=== PATIENT | female | born 1940 | race Caucasian/White ===

== ENCOUNTER 2020-04-03 17:05 | Inpatient (IN) ==
[2020-04-03] MEDS ORDERED: Isovue-370 500 ML BOTTLE IVP ONE (17:19)
[2020-04-03] MEDS ORDERED: Morphine Sulfate 2 MG/ML SYRINGE IVP ONE (17:42)
[2020-04-03] MEDS ORDERED: 0.9 % Sodium Chloride 1,000 ML IVC ONE (17:42)
[2020-04-03] MEDS ORDERED: Ondansetron 4 MG/2 ML VIAL IVP ONE (17:43)
[2020-04-03 17:46] LABS: Bilirubin,Urine Negative (Negative); Blood,Urine Negative (Negative); Clarity,Urine Clear (Clear); Color,Urine Light-Yellow (Yellow); Glucose,Urine (UA) Normal (Normal); Ketones,Urine Negative (Negative); Leukocyte Esterase,Urine Negative (Negative); Nitrite,Urine Negative (Negative); Protein,Urine Negative (Neg-Trace); Specific Gravity,Urine 1.015 (1.010-1.025); Urobilinogen,Urine Normal (Normal)
[2020-04-03 18:16] LABS: Basophils % 0.5 %; Hemoglobin 10.4 g/dL (11.5-15.4); Immature Granulocytes % 0.6 % (0-4); Lymphocytes % 7.3 %; Segmented Neutrophils % 87.8 %
[2020-04-03 18:18] LABS: Basophils # 0.1 K/mcL (0.0-0.2); Eosinophils % 0.4 %; Hematocrit 32.9 % (35.3-44.9); Immature Platelets 2.8 % (1.1-6.1); Lymphocytes # 0.7 K/mcL (0.6-4.6); Mean Corpuscular HGB Conc 31.6 g/dL (31.6-35.5); Mean Corpuscular Hemoglobin 28.9 pg (28.0-33.3); Mean Corpuscular Volume 91.4 fL (83.0-100.0); Mean Platelet Volume 10.9 fL (9.4-12.4); Monocytes # 0.3 K/mcL (0.0-1.3); Monocytes % 3.4 %; Platelet Count 143 K/mcL (140-400); Red Cell Distribution Width 15.9 % (11.5-14.5); White Blood Count 9.4 K/mcL (4.3-11.1)
[2020-04-03 18:37] LABS: Alanine Aminotransferase 23 Units/L (7-52); Albumin 3.7 g/dL (3.5-5.7); Albumin/Globulin Ratio 1.3 (1.1-2.2); Alkaline Phosphatase 211 Units/L (34-104); Aspartate Amino Transferase 43 Units/L (13-39); BUN/Creatinine Ratio 16 (6-26); Bilirubin,Direct 0.2 mg/dL (0.0-0.2); Bilirubin,Indirect 0.5 mg/dL (0.0-1.0); Bilirubin,Total 0.7 mg/dL (0.3-1.0); Blood Urea Nitrogen 15 mg/dL (8-23); Calcium 9.4 mg/dL (8.6-10.3); Carbon Dioxide 24 mEq/L (23-29); Chloride 103 mEq/L (98-107); Globulin 2.8 g/dL (2.4-3.5); Glucose 104 mg/dL (70-105); Lipase 27 Units/L (11-82); Osmolality,Calculated 283 (280-300); Potassium 4.6 mEq/L (3.5-5.1); Sodium 136 mEq/L (136-145); Total Protein 6.5 g/dL (6.4-8.9); eGFR For African Americans > 60 (> 60); eGFR For Non-African Americans 58 (> 60)
[2020-04-03 18:55] LABS: Neutrophils # 8.3 K/mcL (1.6-8.9)
[2020-04-03 21:10] LABS: Influenza A PCR Negative (Negative); Influenza B PCR Negative (Negative); Resp. Syncytial Virus PCR Negative (Negative); SARS-CoV-2 by PCR (In House) Negative (Negative)
[2020-04-03] MEDS ORDERED: Naloxone 0.4 MG/ML INJ IVP PRN (22:28)
[2020-04-03] MEDS: Ondansetron 4 MG/2 ML VIAL IVP PRN (23:42)
[2020-04-03] MEDS: Morphine Sulfate 2 MG/ML SYRINGE IVP PRN (23:43)
[2020-04-04 00:29] LABS: INR 1.2; Prothrombin Time 13.5 Seconds (9.4-12.1)
[2020-04-04 01:42] LABS: Basophils % 0.6 %; Hemoglobin 9.1 g/dL (11.5-15.4); Immature Granulocytes % 0.4 % (0-4)
[2020-04-04 01:44] LABS: Eosinophils # 0.1 K/mcL (0.0-0.6); Eosinophils % 0.7 %; Hematocrit 28.3 % (35.3-44.9); INR 1.2; Immature Platelets 2.8 % (1.1-6.1); Lymphocytes # 0.8 K/mcL (0.6-4.6); Lymphocytes % 11.7 %; Mean Corpuscular HGB Conc 32.2 g/dL (31.6-35.5); Mean Corpuscular Hemoglobin 29.3 pg (28.0-33.3); Mean Platelet Volume 10.9 fL (9.4-12.4); Monocytes # 0.2 K/mcL (0.0-1.3); Monocytes % 3.3 %; Neutrophils # 5.8 K/mcL (1.6-8.9); Platelet Count 146 K/mcL (140-400); Prothrombin Time 13.7 Seconds (9.4-12.1); Red Blood Count 3.11 M/mcL (3.82-4.97); Red Cell Distribution Width 15.8 % (11.5-14.5); Segmented Neutrophils % 83.3 %; White Blood Count 6.9 K/mcL (4.3-11.1)
[2020-04-04 02:02] LABS: Alanine Aminotransferase 20 Units/L (7-52); Albumin 3.1 g/dL (3.5-5.7); Albumin/Globulin Ratio 1.1 (1.1-2.2); Alkaline Phosphatase 166 Units/L (34-104); Aspartate Amino Transferase 29 Units/L (13-39); BUN/Creatinine Ratio 15 (6-26); Bilirubin,Total 0.7 mg/dL (0.3-1.0); Blood Urea Nitrogen 14 mg/dL (8-23); Calcium 8.9 mg/dL (8.6-10.3); Carbon Dioxide 26 mEq/L (23-29); Chloride 103 mEq/L (98-107); Globulin 2.9 g/dL (2.4-3.5); Glucose 89 mg/dL (70-105); Magnesium 2.1 mg/dL (1.6-2.6); Osmolality,Calculated 282 (280-300); Phosphorous 3.6 mg/dL (2.7-4.5); Potassium 4.2 mEq/L (3.5-5.1); Sodium 136 mEq/L (136-145); eGFR For African Americans > 60 (> 60); eGFR For Non-African Americans 56 (> 60)
[2020-04-04] MEDS ORDERED: 0.9 % Sodium Chloride 1,000 ML IVC ONE (03:30)
[2020-04-04] MEDS: Pantoprazole 40 MG VIAL IVP SCH ×2 (05:05→17:35)
[2020-04-04] MEDS: Morphine Sulfate 2 MG/ML SYRINGE IVP PRN ×3 (05:06→18:34)
[2020-04-04] MEDS: *HR* Enoxaparin 100 MG/ML SYRINGE SQ SCH ×2 (05:06→17:34)
[2020-04-04 05:27] LABS: INR 1.2; Prothrombin Time 13.6 Seconds (9.4-12.1)
[2020-04-04] MEDS ORDERED: OXYBUTYNIN CHLORIDE 15 MG PO SCH (18:00)
[2020-04-04] MEDS ORDERED: *HR* Warfarin 3 MG TABLET PO ONE (18:00)
[2020-04-04] MEDS ORDERED: Warfarin perPT PO PRN (18:00)
[2020-04-04] MEDS: 0.9 % Sodium Chloride 1,000 ML IVC SCH (18:30)
[2020-04-04] MEDS: Ondansetron 4 MG/2 ML VIAL IVP PRN (18:39)
[2020-04-04] MEDS ORDERED: NON-FORMULARY MEDICATION 1 EACH EACH (Trazodone Hcl 200 MG) PO SCH (21:00)
[2020-04-04] MEDS ORDERED: ABEMACICLIB 50 MG PO SCH (21:00)
[2020-04-05] MEDS: Ondansetron 4 MG/2 ML VIAL IVP PRN ×2 (02:39→19:38)
[2020-04-05] MEDS: Morphine Sulfate 2 MG/ML SYRINGE IVP PRN (02:44)
[2020-04-05] MEDS: Pantoprazole 40 MG VIAL IVP SCH ×2 (05:18→17:22)
[2020-04-05] MEDS: *HR* Enoxaparin 100 MG/ML SYRINGE SQ SCH ×2 (05:18→17:23)
[2020-04-05] MEDS ORDERED: *HR* Dextrose 50 % in Water (Vial) 50 ML VIAL IVP PRN (05:39)
[2020-04-05] MEDS ORDERED: D5% in Water 1,000 ML IVC PRN (05:39)
[2020-04-05] MEDS ORDERED: Dextrose Gel 15 GM/37.5 ML TUBE PO PRN ×2 (05:39)
[2020-04-05 05:57] LABS: INR 1.2; Prothrombin Time 14.1 Seconds (9.4-12.1)
[2020-04-05 06:03] LABS: Basophils % 0.7 %; Hematocrit 27.6 % (35.3-44.9); Hemoglobin 8.5 g/dL (11.5-15.4); Immature Granulocytes % 0.7 % (0-4); Immature Platelets 2.2 % (1.1-6.1); Lymphocytes # 0.5 K/mcL (0.6-4.6); Lymphocytes % 12.1 %; Mean Corpuscular HGB Conc 30.8 g/dL (31.6-35.5); Mean Corpuscular Hemoglobin 28.9 pg (28.0-33.3); Mean Corpuscular Volume 93.9 fL (83.0-100.0); Mean Platelet Volume 11.2 fL (9.4-12.4); Monocytes # 0.2 K/mcL (0.0-1.3); Monocytes % 5.4 %; Neutrophils # 3.2 K/mcL (1.6-8.9); Platelet Count 118 K/mcL (140-400); Red Blood Count 2.94 M/mcL (3.82-4.97); Red Cell Distribution Width 15.6 % (11.5-14.5); Segmented Neutrophils % 80.1 %; White Blood Count 4.1 K/mcL (4.3-11.1)
[2020-04-05 06:13] LABS: BUN/Creatinine Ratio 18 (6-26); Blood Urea Nitrogen 14 mg/dL (8-23); Calcium 7.9 mg/dL (8.6-10.3); Carbon Dioxide 22 mEq/L (23-29); Chloride 107 mEq/L (98-107); Glucose 71 mg/dL (70-105); Magnesium 2.1 mg/dL (1.6-2.6); Osmolality,Calculated 285 (280-300); Phosphorous 2.7 mg/dL (2.7-4.5); Potassium 4.1 mEq/L (3.5-5.1); Sodium 138 mEq/L (136-145); eGFR For African Americans > 60 (> 60); eGFR For Non-African Americans > 60 (> 60)
[2020-04-05] MEDS ORDERED: Morphine Sulfate 2 MG/ML SYRINGE IVP PRN (09:01)
[2020-04-05] MEDS: 0.9 % Sodium Chloride 1,000 ML IVC SCH (10:47)
[2020-04-05] MEDS: Acetaminophen IV 500 MG/50 ML BAG IVPB SCH ×3 (11:16→23:48)
[2020-04-05] MEDS ORDERED: 0.9 % Sodium Chloride 1,000 ML IVC SCH (16:29)
[2020-04-05] MEDS: VERZENIO PO SCH (20:53)
[2020-04-06] MEDS: *HR* Enoxaparin 100 MG/ML SYRINGE SQ SCH ×2 (05:49→18:17)
[2020-04-06] MEDS: Pantoprazole 40 MG VIAL IVP SCH (05:49)
[2020-04-06 06:44] LABS: Hematocrit 29.3 % (35.3-44.9); Hemoglobin 9.4 g/dL (11.5-15.4); Immature Granulocytes % 0.7 % (0-4); Lymphocytes % 16.4 %; Mean Corpuscular HGB Conc 32.1 g/dL (31.6-35.5); Mean Corpuscular Hemoglobin 29.3 pg (28.0-33.3); Mean Corpuscular Volume 91.3 fL (83.0-100.0); Mean Platelet Volume 11.5 fL (9.4-12.4); Monocytes % 9.1 %; Platelet Count 143 K/mcL (140-400); Red Blood Count 3.21 M/mcL (3.82-4.97); Red Cell Distribution Width 15.1 % (11.5-14.5); Segmented Neutrophils % 72.1 %; White Blood Count 2.9 K/mcL (4.3-11.1)
[2020-04-06 06:45] LABS: Basophils % 0.7 %; Lymphocytes # 0.5 K/mcL (0.6-4.6); Monocytes # 0.3 K/mcL (0.0-1.3); Neutrophils # 2.1 K/mcL (1.6-8.9)
[2020-04-06 06:47] LABS: INR 1.2; Prothrombin Time 13.7 Seconds (9.4-12.1)
[2020-04-06 06:59] LABS: BUN/Creatinine Ratio 15 (6-26); Blood Urea Nitrogen 10 mg/dL (8-23); Calcium 8.1 mg/dL (8.6-10.3); Carbon Dioxide 22 mEq/L (23-29); Chloride 107 mEq/L (98-107); Glucose 88 mg/dL (70-105); Magnesium 1.9 mg/dL (1.6-2.6); Osmolality,Calculated 282 (280-300); Phosphorous 1.9 mg/dL (2.7-4.5); Potassium 3.6 mEq/L (3.5-5.1); Sodium 137 mEq/L (136-145); eGFR For African Americans > 60 (> 60); eGFR For Non-African Americans > 60 (> 60)
[2020-04-06] MEDS ORDERED: Potassium Phosphate 44 MEQ in 0.9 % Sodium Chloride 250 ML IVPB ONE (08:56)
[2020-04-06] MEDS: VERZENIO PO SCH ×2 (09:33→20:42)
[2020-04-06] MEDS ORDERED: *HR* Warfarin 4 MG TABLET PO ONE (18:00)
[2020-04-06] MEDS ORDERED: Warfarin perPT PO PRN (18:00)
[2020-04-06] MEDS: Acetaminophen 325 MG TABLET PO PRN (18:35)
[2020-04-07 04:18] LABS: Basophils % 0.7 %; Eosinophils % 1.3 %; Hematocrit 30.3 % (35.3-44.9); Hemoglobin 9.7 g/dL (11.5-15.4); Lymphocytes # 0.7 K/mcL (0.6-4.6); Lymphocytes % 22.9 %; Mean Corpuscular Volume 90.7 fL (83.0-100.0); Mean Platelet Volume 11.3 fL (9.4-12.4); Monocytes # 0.3 K/mcL (0.0-1.3); Monocytes % 8.5 %; Platelet Count 175 K/mcL (140-400); Red Blood Count 3.34 M/mcL (3.82-4.97); Red Cell Distribution Width 15.1 % (11.5-14.5); Segmented Neutrophils % 65.6 %; White Blood Count 3.1 K/mcL (4.3-11.1)
[2020-04-07 04:23] LABS: INR 1.2; Prothrombin Time 14.3 Seconds (9.4-12.1)
[2020-04-07 04:40] LABS: BUN/Creatinine Ratio 13 (6-26); Blood Urea Nitrogen 10 mg/dL (8-23); Calcium 8.1 mg/dL (8.6-10.3); Carbon Dioxide 22 mEq/L (23-29); Chloride 106 mEq/L (98-107); Glucose 110 mg/dL (70-105); Magnesium 1.8 mg/dL (1.6-2.6); Osmolality,Calculated 284 (280-300); Phosphorous 2.2 mg/dL (2.7-4.5); Potassium 3.6 mEq/L (3.5-5.1); Sodium 137 mEq/L (136-145); eGFR For African Americans > 60 (> 60); eGFR For Non-African Americans > 60 (> 60)
[2020-04-07] MEDS: *HR* Enoxaparin 100 MG/ML SYRINGE SQ SCH ×2 (05:52→17:17)
[2020-04-07] MEDS: VERZENIO PO SCH (09:23)
[2020-04-07] MEDS: Acetaminophen 325 MG TABLET PO PRN (09:56)
[2020-04-07 11:20] VITALS: BP 103/73
[2020-04-07] MEDS ORDERED: *HR* Warfarin 2 MG TABLET PO ONE (18:00)
== END 2020-04-07 17:34 | disposition home health service (06) | DRG 389 ==
LOC: EMEROOARM 17:05 → 3ANU 17:05 → SUATTDRO 21:17 → 3ANU 22:09
PROVIDERS: ADMIT Family Medicine; ATTEND Internal Medicine